=== PATIENT | male | born 1980 | race Caucasian/White ===

== ENCOUNTER 2025-02-01 00:28 | Emergency (ER) | payer MEDICAID, SELFPAY ==
[2025-02-01 00:34] VITALS: BMI 38.7
--- NOTE | 2025-02-01 00:34 | XR_ITS ---
Examination: Right wrist 2 views Technique one AP lateral right wrist 2 views Date and time: February 01, 2025 0058 hours INDICATIONS: Injury to the wrist today, wrist pain. FINDINGS: Acute comminuted fractures at the base of the fifth metacarpal Acute impacted fracture fourth metacarpal neck Carpal bones appear intact IMPRESSION: Acute fractures fourth and fifth metacarpals
[2025-02-01 00:37] VITALS: BP 168/100; PULSE 109; RESP 18; TEMP 37.2; O2SAT 93
--- NOTE | 2025-02-01 00:40 | PD.EDADULT ---
ED General RME/HPI General Chief complaint: Medical Clearance Stated complaint: MEDICAL CLEARANCE Time Seen by Provider: 02/01/25 00:40 Arrival date/time: 02/01/25 00:28 RME / HPI RME / HPI narrative: 44-year-old male with no other past medical history comes into the ED brought in by PD due to right hand pain. Patient stated that today he was working on his car changing his brakes when he slipped and fell on top of his hand. Mentions that his pain right now is a 7 out of 10. Patient still able to move his hand, but this is very swollen and tender to palpation. Otherwise has no loss of sensorium in the hand. Denies having any chest pain, shortness of breath, change in bowel movement, abdominal pain, or burning sensation during urination. Otherwise no other complaint at this time Admits drinking, denies any smoking or illicit drugs. Related Data Allergies Allergy/AdvReac Type Severity Reaction Status Date / Time No Known Allergies Allergy Unknown Uncoded 02/01/25 00:34 Review of Systems Review of Systems Systems Reviewed: All systems reviewed, normal except as documented Past Medical History Past Medical History Comments PMH COMMENT: PMH: none Allergies: NKDA Social: admit drinking socially, denies illicit drugs or smoking ED Exam Narrative Physical exam: Gen: A&O X 3, NAD HEENT: NCAT, EOMI, Pupils reactive NASREEN, not icteric. External ears normal. No rhinorrhea. Moist mucous membranes. Neck: Supple, full range of motion, no observable masses, No meningeal sign. Lungs: No Respiratory distress, clear bilateral. CV: RRR, no murmurs. Abdomen: Soft, nondistended, No rebound tenderness. MSK: R hand swelling with pain to palpation, able to move all digits and no loss of sensorium and no deformity, no redness, peripheral pulses presents, lumbar with no edema. Skin: No rashes, petechiae, lesions.. Neuro: No focal neurological deficits appreciated, sensory and motor intact. Psych: Avoidant Course Quality Measures none Orders Category Date Time Status Splint / Immobilizer STAT Care 02/01/25 01:08 Active XR hand RT 2V Stat Exams 02/01/25 01:03 Taken XR wrist RT 2V Stat Exams 02/01/25 00:34 Taken Ketorolac Inj [Toradol Inj] Med 02/01/25 00:48 Discontinued 30 mg IM X1 ONE Vital Signs Vital signs: Vital Signs Temperature 99.0 F 02/01/25 00:37 Pulse Rate 109 H 02/01/25 00:37 Respiratory Rate 18 02/01/25 00:37 Blood Pressure 168/100 H 02/01/25 00:37 Pulse Oximetry (%) 93 L 02/01/25 00:37 Oxygen Delivery Method Room Air 02/01/25 00:37 Discharge Plan Plan Patient Disposition: [facility]/Court/Law Problem List Clinical Impression: Fracture of hand Patient/Caregiver Discharge Instructions Other Activity Instructions:: Follow-up primary care physician within 5 days You have been placed on the ulnar gutter splint and a sling. Can take Tylenol every 6 hours for pain as needed. Come back to the ED if worsening pain or swelling or discoloration or any other worsening symptoms. Education Materials: Willis's Fracture Print Language: Palestinian MDM Narrative MDM hospital course: Patient was seen and evaluated by myself on arrival. Diagnostic imaging and pain medication was given. ED physician interpreted imaging studies and Wrist x-ray revealed of fifth proximal metacarpal fracture therefore hand x-ray was ordered and again noted 1/5 proximal metacarpal head fracture with minimal to no angulation or displacement. Patient does not have any limitations in range of motion. At this time patient will Ulnar gutter splint with a sling and is medically cleared to go back to shelter. Case disclosed with Attending Dr. 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 Medication Administration(s) Medication Administration History Discontinued Medications Ketorolac Tromethamine (Ketorolac Inj 60 Mg/2 Ml Vial) 30 mg IM X1 ONE Stop: 02/01/25 00:49
--- NOTE | 2025-02-01 01:03 | XR_ITS ---
Examination: Hand, left 3 views Technique: Hand AP, oblique, lateral 3 views Date and time of exam: February 01, 2025 0100 hours INDICATIONS: Injury to the hand today, hand pain. 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
[2025-02-01] MEDS: KETOROLAC INJ 60 MG/2 ML VIAL 30 MG IM (01:22)
== END 2025-02-01 01:30 ==
LOC: SERX 01:33
DX: Z02.89 Encounter for other administrative examinations (principal); S62.304A Unspecified fracture of fourth metacarpal bone, right hand, initial encounter for closed fracture; S62.306A Unspecified fracture of fifth metacarpal bone, right hand, initial encounter for closed fracture; W01.0XXA Fall on same level from slipping, tripping and stumbling without subsequent striking against object, initial encounter; Z65.3 Problems related to other legal circumstances; Y93.89 Activity, other specified
CPT/HCPCS: 29125; 73100; 73120; 99284; J1885